=== PATIENT | female | born 1975 | race African-American/Black ===

== ENCOUNTER 2024-03-01 09:46 | Day surgery (SDC) | payer SELFPAY ==
[2024-02-26 10:11] VITALS: BMI 31.8
[2024-03-01] MEDS ORDERED: PROPOFOL 20 ML ONE ×2 (11:02→13:11)
[2024-03-01] MEDS ORDERED: LIDOCAINE HCL/PF 2% SDV 5ML VIAL ONE (11:02)
[2024-03-01] MEDS ORDERED: ceFAZolin SODIUM 1 GM VIAL ONE (11:02)
[2024-03-01] MEDS ORDERED: MIDAZOLAM HCL 2 MG/2 ML SINGLE DOSE VIAL ONE ×2 (11:02→13:26)
[2024-03-01] MEDS ORDERED: ROCURONIUM BROMIDE 50 MG/5 ML SYRINGE ONE (11:03)
[2024-03-01] MEDS ORDERED: EPINEPHrine/PF 1 MG/1 ML (1:1,000) AMPULE ONE (11:26)
[2024-03-01] MEDS ORDERED: LIDOCAINE HCL 1%, 10 MG/ML (20ML VIAL) ONE (11:26)
[2024-03-01] MEDS ORDERED: BACITRACIN ZINC 15 GM TUBE TOPICAL OINTMENT ONE ×2 (11:26→14:56)
[2024-03-01] MEDS ORDERED: SUCCINYLCHOLINE CHLORIDE 200 MG/10 ML SYRINGE ONE (13:09)
[2024-03-01] MEDS ORDERED: DEXAMETHASONE SOD PHOSPHATE 4 MG/1 ML VIAL ONE (14:06)
[2024-03-01] MEDS ORDERED: LACTATED RINGERS SOLUTION 1,000 ML IV SCH (17:45)
[2024-03-01] MEDS ORDERED: ONDANSETRON 4 MG/2 ML VIAL ONE (18:21)
[2024-03-01] MEDS: ONDANSETRON 4 MG/2 ML VIAL IVPUSH PRN (18:22)
[2024-03-01] MEDS ORDERED: FENTANYL CITRATE/PF 50 MCG/ML VIAL ONE (18:36)
[2024-03-01] MEDS ORDERED: ONDANSETRON *ODT* 4 MG TABLET SL PRN (20:42)
[2024-03-01] MEDS ORDERED: oxyCODONE HCL 5 MG TABLET PO PRN (20:43)
[2024-03-01] MEDS: LACTATED RINGERS SOLUTION 1,000 ML IV SCH (20:45)
[2024-03-01] MEDS: SODIUM CHLORIDE 0.9% 500 ML INFUS.BAG IV ONE (22:03)
[2024-03-01] MEDS ORDERED: CEFAZOLIN 1 GM in DEXTROSE 5%-WATER - 50 ML IVPB SCH (23:00)
[2024-03-01] MEDS: ENOXAPARIN NA (PORCINE) 40 MG/0.4 ML DISP.SYRIN SQ ONE (23:04)
[2024-03-01] MEDS: CEFAZOLIN 1 GM in DEXTROSE 5%-WATER - 50 ML IVPB SCH (23:04)
[2024-03-02] MEDS: HYDROmorphone HCl 2 MG/ML VIAL IVPB PRN (00:22)
[2024-03-02] MEDS: ACETAMINOPHEN 325 MG TABLET (FP) PO PRN (05:29)
[2024-03-02] MEDS: oxyCODONE HCL 5 MG TABLET PO PRN (05:30)
[2024-03-02] MEDS: ONDANSETRON 4 MG/2 ML VIAL IVPUSH PRN (06:36)
[2024-03-02 07:04] VITALS: RESP 18
[2024-03-02] MEDS: DOXYCYCLINE HYCLATE 100 MG CAPSULE PO SCH (08:59)
[2024-03-02] MEDS: ONDANSETRON *ODT* 4 MG TABLET SL PRN (09:34)
[2024-03-02 11:06] VITALS: BP 116/62; PULSE 75; TEMP 98
== END 2024-03-02 13:51 | disposition home or self-care (01) ==
LOC: FASU 09:46 → FASUSAT 09:46 → FM/S 19:07 → FASUSAT 03-02 13:51
PROVIDERS: ATTEND Surgery
CPT/HCPCS: 81025; 94760; Q0162